=== PATIENT | female | born 1995 | race Caucasian/White ===

== ENCOUNTER 2017-05-26 22:24 | Emergency (ER) | payer MEDICAID ==
[2017-05-26] MEDS ORDERED: hydrOXYzine HCl 50 MG/ML SDV IM ONE (22:59)
[2017-05-26] MEDS ORDERED: Ketorolac 60 MG/2 ML SDV IM ONE (22:59)
--- NOTE | 2017-05-27 02:56 | ER ---
DATE SEEN: 05/26/2017 CHIEF COMPLAINT: Abdominal pain. HISTORY OF PRESENT ILLNESS: This is a 22-year-old female complaining of pain in the left upper quadrant x1 hour. The pain is sharp. No radiation. Associated with some nausea. She complains of no constipation or diarrhea. No fever or chills. No dysuria. Last period is current. PAST MEDICAL HISTORY: No other medical problems. ALLERGIES: Penicillin. PHYSICAL EXAMINATION: GENERAL: Nontoxic in appearance. VITAL SIGNS: Normal blood pressure. Temperature initially 94.7. ENT: Negative. CHEST: Clear. ABDOMEN: Soft with mild tenderness in left flank, but no rebound or masses. The right lower quadrant, the pelvic, and suprapubic areas were nontender to palpation. LAB STUDIES: Were normal including a negative HCG screen. GC and chlamydia were sent out. IMPRESSION: Nonspecific abdominal pain. PLAN: Toradol and Vistaril IM. The patient advised to follow up in the clinic tomorrow if symptoms are not improved. TIME SEEN: 2308 hours. /[id number] VIVI/KARLA
== END 2017-05-26 23:35 | disposition home or self-care (01) ==
LOC: FB.ED 22:24
DX: R10.12 Left upper quadrant pain (principal); Z88.0 Allergy status to penicillin
CPT/HCPCS: 36415; 80053; 81001; 81025; 85025; 87491; 87591; 96372; 99284; J1885; J3410

== ENCOUNTER 2017-07-13 16:57 | Emergency (ER) | payer MEDICAID ==
--- NOTE | 2017-07-13 17:50 | EDM.PDOC ---
ED HPI GENERAL MEDICAL PROBLEM - General Chief Complaint: Skin Complaint Stated Complaint: BUMPS ON BODY Time Seen by Provider: 07/13/17 17:30 Source of Information: Reports: Patient, RN History Limitations: Reports: No Limitations - History of Present Illness INITIAL COMMENTS - FREE TEXT/NARRATIVE: 22 yo female new in the area presents with a rash present since she awoke today. No fever. No breathing issues. No self tx. Has no local doctor. No new meds. Rash is slightly itchy. Onset: Today Onset Date: 07/13/17 Onset Time: 09:00 Duration: Hour(s):, Constant Location: Reports: Generalized Quality: Reports: Other (mildly pruritic) Severity: Mild Improves with: Reports: None Worsens with: Reports: None Context: Reports: Other (unknown) Associated Symptoms: Reports: No Other Symptoms Treatments REGISTERED PUBLIC SURVEYOR: Reports: Other (see below) (none) - Related Data Allergies Allergy/AdvReac Type Severity Reaction Status Date / Time Penicillins Allergy Hives Verified 07/13/17 17:25 Home Meds: Home Meds Lisdexamfetamine [Vyvanse] 20 mg PO DAILY 05/26/17 [History] traZODone 50 mg PO BEDTIME 05/26/17 [History] lamoTRIgine [Lamotrigine] 50 mg BEDTIME 07/13/17 [History] Past Medical History Musculoskeletal History: Reports: Fracture Other Musculoskeletal History: hx L wrist fx Neurological History: Reports: Concussion Psychiatric History: Reports: ADD, Anxiety, Depression Endocrine/Metabolic History: Reports: None - Past Surgical History Musculoskeletal Surgical History: Reports: None Social & Family History - Family History Family Medical History: Noncontributory - Tobacco Use Smoking Status *Q: Never Smoker - Caffeine Use Caffeine Use: Reports: Soda - Recreational Drug Use Recreational Drug Use: No ED ROS GENERAL - Review of Systems Review Of Systems: See Below Constitutional: Reports: No Symptoms HEENT: Reports: No Symptoms Respiratory: Reports: No Symptoms Cardiovascular: Reports: No Symptoms GI/Abdominal: Reports: No Symptoms : Reports: No Symptoms Musculoskeletal: Reports: No Symptoms Skin: Reports: Pruritis, Rash, Erythema ED EXAM, SKIN/RASH Exam: See Below Exam Limited By: No Limitations General Appearance: Alert, WD/WN, No Apparent Distress Eye Exam: Bilateral Eye: Normal Inspection Ears: Normal External Exam, Normal Canal, Hearing Grossly Normal, Normal TMs Nose: Normal Inspection, Normal Mucosa, No Blood Throat/Mouth: Normal Inspection, Normal Lips, Normal Oropharynx, Normal Voice, No Airway Compromise Head: Atraumatic, Normocephalic Neck: Normal Inspection, Supple, Non-Tender Respiratory/Chest: No Respiratory Distress, Lungs Clear, Normal Breath Sounds, No Accessory Muscle Use, Chest Non-Tender Cardiovascular: Regular Rate, Rhythm, No Edema GI/Abdominal: Normal Bowel Sounds, Soft, Non-Tender, No Distention Back Exam: Normal Inspection. No: CVA Tenderness (R), CVA Tenderness (L) Extremities: Normal Inspection, Normal Range of Motion, Non-Tender, No Pedal Edema Neurological: Alert, Oriented, CN II-XII Intact, Normal Cognition, No Motor/ Sensory Deficits Psychiatric: Normal Affect, Normal Mood Skin: Warm, Dry, Intact, Erythema, Rash, Other (Diffuse hive-like rash scattered over areas of arms and legs and trunk. None on head or neck. Lesions are fairly uniform in size and no fading of any of these lesions is evident. ? very tiny vesicle centrally on some of the lesions(think chicken pox). ). No: No Rash Characteristics: Maculopapular, Urticarial (similar to, but not urticaria.), Erythematous. No: Vesicular, Bullous Associated features: Induration. No: Warmth, Tenderness Course - Vital Signs Last Recorded V/S: Last Vital Signs Temp 36.8 C 07/13/17 17:20 Pulse 72 07/13/17 17:20 Resp 18 07/13/17 17:20 BP 101/63 07/13/17 17:20 Pulse Ox 100 07/13/17 17:20 Departure - Departure Time of Disposition: 17:58 Disposition: Home, Self-Care 01 Condition: Good Clinical Impression: Maculopapular rash - Discharge Information Instructions: Hives, [id number] Referrals: PCP,None [Primary Care Provider] - Forms: ED Department Discharge Care Plan Goals: Take diphenhydramine (Benadryl) 25-50 mg every 6hrs as needed for itch. Recheck if a lot worse.
== END 2017-07-13 17:50 | disposition home or self-care (01) ==
LOC: FB.ED 16:57
DX: R21 Rash and other nonspecific skin eruption (principal); Z88.0 Allergy status to penicillin; Z79.899 Other long term (current) drug therapy
CPT/HCPCS: 99282

== ENCOUNTER 2017-11-05 19:23 | Emergency (ER) | payer MEDICAID ==
--- NOTE | 2017-11-05 23:33 | ER ---
DATE SEEN: 11/05/2017 REASON FOR VISIT: Bleeding. HISTORY OF PRESENT ILLNESS: This is a 22-year-old female with vaginal spotting that started yesterday and got worse today. She had [id number] pain and cramping. She had a positive HCG screen recently, and she is supposed to be about 6 to 7 weeks. She denies any dysuria, frequency, fever, or chills. PAST MEDICAL HISTORY: Noncontributory. MEDICATIONS: None. ALLERGIES: Penicillin. PHYSICAL EXAMINATION: VITAL SIGNS: Blood pressure is normal, pulse is 76, and temperature 97.9. ABDOMEN: Soft. MENTAL STATUS: Alert. SKIN: Maculopapular rash. LABORATORY DATA: Labs revealed a normal white cell count on CBC. Quantitative HCG is 4922. RADIOGRAPHIC DATA: Ultrasound revealed a gestational sac about 5 weeks long but with no heart motion. IMPRESSION: Incomplete miscarriage. PLAN: I advised her to be seen in the next 48 hours for repeat HCG and serial followup to make sure of complete resolution and return to the ED with pain, worsening symptoms, or fever. TIME SEEN: 2044 hours. /[id number] VIVI/KARLA
--- NOTE | 2017-11-09 07:57 | US ---
INDICATION: 7 weeks, bleeding vaginally. OB ULTRASOUND, FIRST TRIMESTER: Multiple ultrasonic images were obtained with transabdominal probe and revealed a single intrauterine gestation. pole and heart motion were not visible. Need endovaginal probe ultrasound for further evaluation. No gross abnormality of the ovaries or uterus was identified. The endometrial cavity appeared to have fluid within it but not adequately defined. No adnexal mass lesions or free fluid collections were suggested. IMPRESSION: Intrauterine gestation. heart motion could not be identified. Need endovaginal probe ultrasound for further evaluation. TRANSVAGINAL OB ULTRASOUND: Utilizing transvaginal probe, multiple ultrasonic images were obtained and revealed the right ovary to measure 2.6 x 1.9 x 1.4 cm for a volume of 3.62 mL, with the left ovary measuring 1.4 x 1.3 x 1.9 cm with a volume of 1.8 mL. Minimal follicles are present. No adnexal mass lesions or free fluid collections were demonstrated. The uterus measured 7.4 x 3.3 x 4.3 cm. New Cassel-rump length was compatible with 5 weeks, 6 days gestational age with gestational sac size compatible with 6 weeks gestational age. This is behind the LMP GA of 7 weeks, 1 day. There is evidence of demise in that the heart motion could not be identified. The yolk sac measured 3.5 mm. IMPRESSION: Findings are compatible with demise at approximately 5 weeks , 6 days gestational age. Report was given in person to Dr. Tavares immediately after the examination was completed on 11/05/2017. [facility]
== END 2017-11-05 20:48 | disposition home or self-care (01) ==
LOC: FB.ED 19:23
DX: O03.4 Incomplete spontaneous abortion without complication (principal)
CPT/HCPCS: 36415; 76815; 76817; 80053; 84702; 85025; 86900; 86901; 99284